=== PATIENT | female | born 1970 | race Caucasian/White ===

== ENCOUNTER 2016-04-08 20:21 | Emergency (ER) | payer OTHER ==
[2016-04-08 20:30] VITALS: BP 124/62; PULSE 78; RESP 18; TEMP 98; O2SAT 96
[2016-04-08 20:41] LABS: LEUKOCYTE ESTERASE,URINE TRACE (NEGATIVE); NITRITE,URINE NEGATIVE (NEGATIVE); PH,URINE 5.5 (5.0-7.5)
[2016-04-08 20:44] LABS: COLOR YELLOW
[2016-04-08] MEDS ORDERED: PHENAZOPYRIDINE HCL 200 MG TAB PO ONE (20:47)
[2016-04-08] MEDS ORDERED: CEPHALEXIN 500MG PREPACK#4 BTL TAKEHOME ONE (20:47)
[2016-04-08 20:48] LABS: BACTERIA 2+ /hpf (NONE SEEN); MUCUS 1+ /lpf (NONE-1+); RBC,URINE OCCASIONAL /hpf (0-3)
--- NOTE | 2016-04-08 20:51 | UCPHY ---
H & P Time Seen by Provider: 04/08/16 20:27 Patient Type: Established HPI/ROS: HPI Urinary symptoms. 45-year-old female by private vehicle with her . She complains of urinary tract infection symptoms which include burning with urination and increased frequency for the last several hours. No back pain. No fever. No vomiting. ROS: Constitutional: No fever, no chills. No weakness. Respiratory: No cough. No shortness of breath. Cardiac: No chest pain, no palpitations. Gastrointestinal: No abdominal pain, no vomiting, no diarrhea. Genitourinary: No hematuria. As above. Musculoskeletal: No back pain. Skin: No rashes. Neurological: No headache. No focal weakness or altered sensation. Past medical history: MS and hypothyroid. Social history: Here with her . Physical Exam: General Appearance: Alert, no distress. This patient is responding to questions appropriately and in full sentences. This patient appears well- hydrated and well-nourished. Eyes: Pupils equal and round no pallor or injection. No lid edema, erythema or injection. Gastrointestinal: Abdomen is soft and nontender, no masses, bowel sounds normal. No focal tenderness at McBurney's point. No Brush sign. Neurological: Motor sensory function is grossly intact. Cranial nerves are normal. Gait is normal. Skin: Warm and dry, no rashes. Musculoskeletal: No CVA tenderness bilaterally. Extremities are symmetrical. All joints range without pain or impingement. Psychiatric: No agitation. No depression. Database: EKG: Imaging: Procedures: Emergency department course: Urine sample provided. Based on her symptoms as well as urinalysis result patient was started on treatment for urinary tract infection in the emergency department which included 200 mg of Pyridium than 500 mg of Keflex. She will be prescribed both of these medications. She feels comfortable going home and I feel she is safe for discharge. Follow-up and return to urgent care have been discussed with her. All of her questions were answered. She was discharged in good condition with her . Differential Diagnosis: The differential diagnosis on this patient includes but is not limited to urinary tract infection. Pyelonephritis, nephrolithiasis, unlikely. This represents a partial list of diagnoses considered. These considerations are based on history, physical exam, past history, reassessment and diagnostic testing. Smoking Status: Never smoked Constitutional: Initial Vital Signs Temperature (C) 36.6 C 04/08/16 20:29 Heart Rate 78 04/08/16 20:29 Respiratory Rate 18 04/08/16 20:29 Blood Pressure 124/62 H 04/08/16 20:29 O2 Sat (%) 96 04/08/16 20:29 O2 Delivery Mode Room Air Allergies/Adverse Reactions: No Known Allergies Allergy (Verified 09/05/11 13:07) Home Medications: Medication Instructions Recorded Levothyroxine [Synthroid 75 mcg 75 mcg PO DAILY06 09/05/11 (RX)] Cephalexin [Keflex (*)] 500 mg PO Q6 5 Days 04/08/16 Phenazopyridine HCl [Pyridium] 200 mg PO TID #10 tab 04/08/16 Tecfidera 04/08/16 Medical Decision Making - Data Points Laboratory Results: 04/08/16 20:35 Urine Color YELLOW Urine Appearance HAZY Urine pH 5.5 (5.0-7.5) Ur Specific [place] 1.020 (1.002-1.030) Urine Protein NEGATIVE (NEGATIVE) Urine Ketones 3+ H (NEGATIVE) Urine Blood NEGATIVE (NEGATIVE) Urine Nitrate NEGATIVE (NEGATIVE) Urine Bilirubin NEGATIVE (NEGATIVE) Urine Urobilinogen 0.2 EU (0.2-1.0) Ur Leukocyte Esterase TRACE H (NEGATIVE) Urine RBC Pending Urine WBC Pending Ur Epithelial Cells Pending Ur Culture Indicated? Pending Urine Glucose NEGATIVE (NEGATIVE) Departure - Departure Disposition: Home, Routine, Self-Care Clinical Impression: Urinary tract infection Condition: Good Instructions: Urinary Tract Infection in Women (ED) Additional Instructions: Read and follow provided instructions. Follow-up with your primary care physician in 1-2 days for re-evaluation as needed. Take medication as prescribed. Return to the emergency department for fever, back pain, vomiting, abdominal pain or other serious concerns. Referrals: Mary Slade MD [Primary Care Provider] - As per Instructions Prescriptions: Cephalexin [Keflex (*)] 500 mg PO Q6 5 Days Phenazopyridine HCl [Pyridium] 200 mg PO TID #10 tab - PQRS PQRS Measurement: Not applicable.
== END 2016-04-08 20:58 | disposition home or self-care (01) ==
LOC: CED 20:21
DX: N39.0 Urinary tract infection, site not specified (principal)
CPT/HCPCS: 81003-PO; 81015-PO; 99214-PO; G0463-PO

== ENCOUNTER → 2016-12-25 | Outpatient (CLI) | payer OTHER | LOC: FIMAGING 14:28 | PROVIDERS: ATTEND Physician Assistant Medical | DX: G35 Multiple sclerosis (principal) ==